=== PATIENT | male | born 1990 | race Caucasian/White ===

== ENCOUNTER 2018-11-20 14:50 | Emergency (ER) | payer OTHER, SELFPAY ==
[2018-11-20 14:51] VITALS: BP 119/75; PULSE 97; RESP 18; TEMP 36.4; O2SAT 98; BMI 24.7
--- NOTE | 2018-11-20 16:20 | ED.DCSUM_ITS ---
History of Present Illness Informant: Patient, Family Narrative: 28-year-old male with no past medical history concern for tick in the left ear. Family present state they saw a black speck in his ear and he was having pain. They stated they did see what appeared to be a tick earlier today on the outer portion of the ear. Denies any fever, chills, numbness or tingling. <Cam Taylor - Last Filed: 11/20/18 16:20> <Ernie Barahona - Last Filed: 11/20/18 23:31> Chief Complaint: Foreign Body Past Medical History Prior records reviewed: Yes Past Medical History: None Smoking Status: Light Smoker (<10/day) <Cam Taylor - Last Filed: 11/20/18 16:20> <Ernie Barahona - Last Filed: 11/20/18 23:31> - Allergies and Home Meds Allergies/Adverse Reactions: Allergies No Known Allergies Allergy (Verified 11/20/18 14:53) Primary Care Physician: [facility] Doctor,Out of [Primary Care Provider] - Review of Systems General: Denies: Chills, Fever, Sweats Eyes: Denies: Visual changes - bilaterally, Diplopia ENT: Denies: Rhinorrhea, Sore throat Cardiovascular: Denies: Chest pain, Palpitations Respiratory: Denies: Dyspnea, Cough, Dyspnea on exertion Gastrointestinal: Denies: Abdominal pain, Nausea, Vomiting, Diarrhea, Melena, Hematochezia Genitourinary: Denies: Dysuria, Hematuria, Frequency Musculoskeletal: Denies: Back pain, Extremity Pain Skin: Denies: Rash, Wounds Neurological: Denies: Headache, Weakness, Numbness <Cam Taylor - Last Filed: 11/20/18 16:20> Physical Exam Vital Signs/Narrative: Vital Signs Temp Pulse Resp BP Pulse Ox 11/20/18 14:51 97.6 F L 97 18 119/75 98 General: Well nourished, Well developed, No Acute Distress Head: Normocephalic, Atraumatic Eyes: Perrl, EOMI ENT: Moist mucous membranes, No rhinorrhea, - - Small area of scabbing in the inner external pinna. No evidence of tick or other foriegn body at this time. Neck: Supple, Nontender Cardiovascular: Regular rate, Regular rhythm, No murmurs Respiratory: No distress, CTA bilaterally, Chest nontender Abdomen: Soft, Nontender, Nondistended, Normal bowel sounds Back: Nontender, Normal Inspection Extremities: Nontender, No edema Skin: Normal color, No rash Neurological: Alert, Oriented x3, Cranial nerves II-XII grossly intact, Normal Strength, Normal Sensation Psychological: Normal affect, Normal Mood <Cam Taylor - Last Filed: 11/20/18 16:20> Diagnostic/Tx/Re-eval - Medical Decision Making Appears well and nontoxic. Vital signs within normal limits. I cannot identify an insect or a foreign body in this gentlemen's ear. There was a very small amount of lidocaine instilled at the site. It was explored thoroughly. Only a scab was able to be found. After discussion with the family was decided that they will keep it clean and dry washing with soap and water. No prophylactic antibiotics at this time. Follow-up with primary care provider upon return to [place]. Patient and family agreeable and discharged home in stable condition. Home stable. Impression 1. Ear wound <Cam Taylor - Last Filed: 11/20/18 16:20> - Medical Decision Making Saw the patient independently and in conjunction with the resident. Patient concern for a take in his left ear. There is a black pinpoint lesion in his left ear helix. Resident anesthetized and explored the wound. Scab was removed. No insect or tick visualized. Patient will be discharged to follow-up as an outpatient. <Ernie Barahona - Last Filed: 11/20/18 23:31> ED Disposition <Cam Taylor - Last Filed: 11/20/18 16:20> <Ernie Barahona - Last Filed: 11/20/18 23:31> - Plan for ED Patient: Disposition: Home or Assisted Living Diagnosis: Ear wound Instructions: Foreign Object in the Ear or Nose Referrals: [facility] Doctor,Out of [Primary Care Provider] -
== END 2018-11-20 16:32 | disposition home or self-care (01) ==
PROVIDERS: Emergency Provider Emergency Medicine
DX: S01.302A Unspecified open wound of left ear, initial encounter (principal); R23.4 Changes in skin texture; X58.XXXA Exposure to other specified factors, initial encounter; Y93.89 Activity, other specified; Y92.89 Other specified places as the place of occurrence of the external cause; Y99.8 Other external cause status
CPT/HCPCS: 99281

== ENCOUNTER → 2019-07-17 07:24 | Outpatient (CLI) | payer SELFPAY ==
--- NOTE | 2019-07-17 07:44 | MRI_ITS ---
STUDY: MRI LUMBAR SPINE WITHOUT CONTRAST REASON FOR EXAM: Male, 28 years old. radiculopathy,leg pain TECHNIQUE: Standardized fat and water weighted pulse sequences were obtained in the sagittal and axial planes. COMPARISON: None FINDINGS: T12-L1: Normal endplates. Normal disc height, hydration and morphology. Normal bilateral facet joints. Normal central canal and bilateral lateral recesses. Normal bilateral intervertebral neural foramina. Normal lumbar lordosis. There is no substantial scoliosis. Normal conus medullaris that terminates at the L1. L1-2: Normal endplates. Normal disc height, hydration and morphology. Normal bilateral facet joints. Normal central canal and bilateral lateral recesses. Normal bilateral intervertebral neural foramina. L2-3: Normal endplates. Normal disc height, hydration and morphology. Normal bilateral facet joints. Normal central canal and bilateral lateral recesses. Normal bilateral intervertebral neural foramina. L3-4: Normal endplates. Normal disc height, hydration and morphology. Normal bilateral facet joints. Normal central canal and bilateral lateral recesses. Normal bilateral intervertebral neural foramina. L4-5: Normal endplates. Normal disc height, hydration and morphology. Normal bilateral facet joints. Normal central canal and bilateral lateral recesses. Normal bilateral intervertebral neural foramina. L5-S1: Normal endplates. Normal disc height, hydration and morphology. Normal bilateral facet joints. Normal central canal and bilateral lateral recesses. Normal bilateral intervertebral neural foramina. Normal visualized sacral ala. Normal visualized paraspinous soft tissue structures. MRI/Spine Lumbar (Routine) IMPRESSION: Normal unenhanced MR examination of the lumbar spine. Electronically Signed: Dominik Quigley MD at 15:31 EDT Tel , Service support ,
== END ==
PROVIDERS: Visit Provider Physician Assistant
DX: M54.16 Radiculopathy, lumbar region (principal)
CPT/HCPCS: 72148

== ENCOUNTER 2020-05-19 11:44 | Emergency (ER) | payer OTHER, SELFPAY ==
[2020-05-19 11:45] VITALS: BP 127/93; PULSE 118; RESP 20; TEMP 36.1; O2SAT 97; BMI 29.0
--- NOTE | 2020-05-19 11:59 | ED.VIS.GEN ---
History of Present Illness Chief Complaint: Upper Extremity Injury Narrative: Patient presenting for evaluation secondary to a wrist injury. Per patient reports he suffered a fall from around 16 feet on Wednesday of this week. Patient tells me that he has been going to work all week, but has been wrapping his right wrist with an Stevo bandage. States that he is having continued severe pain. Patient denies to me that he hit his head or loss consciousness, or that he has any other injuries although the patient seems somewhat sedate currently and is difficult to obtain a full and accurate history. He denies to me any substance abuse or alcohol use Past Medical History - Allergies and Home Meds Allergies/Adverse Reactions: Allergies No Known Allergies Allergy (Verified 05/19/20 11:47) Primary Care Physician: Care Physician,No Primary [Primary Care Provider] - Prior records reviewed: Yes Past Medical History: None Smoking Status: Light Smoker (<10/day) Drugs: None Review of Systems ROS: Unable to Obtain - Patient is intermittently falling asleep Physical Exam Vital Signs/Narrative: Vital Signs Temp Pulse Resp BP Pulse Ox 05/19/20 11:45 97 F L 118 H 20 H 127/93 H 97 Inital Vital Signs reviewed: Yes General: Well nourished, Well developed, - - Intermittently responsive to questions and follows commands but is also falling asleep during the history and physical Head: Normocephalic, Atraumatic Eyes: Perrl, EOMI ENT: - - No step-offs of the neck, patient complains of midline tenderness in the lower C-spine. Neck: Supple Cardiovascular: Regular rate, Tachycardia, - - 2+ radial pulses bilaterally symmetric Respiratory: No distress, CTA bilaterally, Chest nontender Abdomen: Soft, Nontender, Nondistended, Normal bowel sounds Back: Nontender, Normal Inspection Extremities: - - Swelling and tenderness to palpation of the right wrist. Hand, proximal forearm, elbow, and upper arm appear atraumatic. No other traumatic injuries of the upper and lower extremities. Skin: Normal color, No rash Neurological: Alert, Normal Strength, Normal Sensation, - - Intermittently falling asleep, but arousable to noxious stimuli moving the upper and lower extremities. Diagnostic/Tx/Re-eval - Medical Decision Making Patient presented secondary to a wrist injury. On exam the patient seems to be intoxicated. I did initially order an alcohol level as well as CT imaging of the brain and cervical spine on this patient. Patient declined any additional testing other than his wrist x-ray. 3 view of the right wrist by my personal interpretation shows no signs of acute fracture. Sat down and had a prolonged conversation with the patient. He does report history of substance abuse as well as alcoholism. He is alert and oriented x3. He states that he wishes to leave. Patient also communicates to me that he is having some emotional issues that due to the fact that he is Ev[place] if he addresses these he will be condemned. I do feel that he suicidal homicidal or risk to others currently. Patient was discharged with supportive care. I did provide phone numbers for both the counseling center as well as orthopedics. ED Disposition - Plan for ED Patient: Disposition: Home or Assisted Living Diagnosis: Right wrist sprain Instructions: ED Wrist Sprain Referrals: Counseling,Center [GROUP OF PHYSICIANS] -
--- NOTE | 2020-05-19 12:32 | ED.RN ---
pt requests to leave. offered to call the friend that brought pt up and have him come sit with pt. pt refuses. dr us back to room, pt stands to leave. then states he will stay for x-ray
--- NOTE | 2020-05-19 12:38 | RAD_ITS ---
STUDY: X-RAY - RIGHT WRIST REASON FOR EXAM: Male, 29 years old. PT FELL 16 FOOT ON WEDNESDAY. PAIN TO RIGHT WRIST. TECHNIQUE: For view(s) of the wrist were obtained. COMPARISON: None. FINDINGS: Normal visualized distal radius and ulna. Normal radiocarpal articulation. Normal distal radioulnar articulation. Normal carpal bones. Normal carpal articulations. Normal carpometacarpal articulation of the thumb. Normal second through fifth carpometacarpal articulations. Normal visualized metacarpal bones. The soft tissue structures are unremarkable. RAD/Wrist min 3 Views IMPRESSION: Normal x-ray examination of the wrist. Electronically Signed: Dominik Quigley MD at 13:27 EST Tel , Service support ,
--- NOTE | 2020-05-19 12:49 | ED.RN ---
pt given dc instructions for wrist sprain. told to follow-up with dr tai. this rn attempted to give pt number for [facility]. pt does not want written info but did allow this rn to discretely write number on one piece of dc paper. pt encourage to return at anytime
[2020-05-19 12:51] LABS: Bedside Glucose 88 mg/dL (70-110)
== END 2020-05-19 12:55 | disposition home or self-care (01) ==
LOC: ED 12:53
PROVIDERS: Emergency Provider Emergency Medicine
DX: S63.501A Unspecified sprain of right wrist, initial encounter (principal); F17.200 Nicotine dependence, unspecified, uncomplicated; W19.XXXA Unspecified fall, initial encounter
CPT/HCPCS: 73110; 82962; 99282

== ENCOUNTER 2021-03-30 04:24 | Emergency (ER) | payer OTHER, SELFPAY ==
[2021-03-30 04:26] VITALS: BP 135/97; PULSE 105; RESP 18; TEMP 37; O2SAT 93; BMI 25.8
--- NOTE | 2021-03-30 04:36 | CT_ITS ---
STUDY: CT CHEST WITHOUT CONTRAST REASON FOR EXAM: Male, 30 years old. left upper back/scapula injury -- 500# wall fell on back RADIATION DOSAGE (If Supplied By Facility): CTDIvol = ( 13.08 ) mGy, DLP = ( 503.00 ) mGycm TECHNIQUE: Transaxial 2.5 mm imaging was performed without the administration of intravenous contrast material. Multiplanar coronal and sagittal images were reformatted. This examination is limited for the evaluation of gastrointestinal, solid organs and vascular structures due to the lack of intravenous and oral contrast. Individualized dose optimization techniques were used for this CT. COMPARISON: None. FINDINGS: There is no demonstrated pneumothorax, contusion or effusion. Calcified nodule in the bilateral upper lobe, left lower and right middle lobe . Minimal airspace disease less than 1 cm in the anterior left upper lobe. Probable minimal scarring in the bases. There is no demonstrated pleural abnormality. Normal heart and pericardium. Calcified mediastinal and left hilar lymph nodes. Normal hilar regions. Normal unenhanced pulmonary arteries. Normal aorta arch and descending thoracic aorta. Degenerative changes of the right acromioclavicular joint. The bilateral clavicles, scapula, hemithoraces and sternum appear intact. There is a pectus excavatum deformity. There is no demonstrated abnormality of the visualized upper abdomen. CT/Chest without Contrast IMPRESSION: No acute vascular, parenchymal, visceral or osseous injury on noncontrast imaging. Suspect granulomatous exposure. Electronically Signed: Linh Guido MD at 5:47 EST , Service support ,
[2021-03-30] MEDS: oxyCODONE 5 MG Tablet PO (05:06)
--- NOTE | 2021-03-30 05:09 | EX.ED.UPPERE ---
HPI History of Present Illness Chief Complaint: Upper Extremity Injury Informant: patient Narrative Narrative: Patient presents for work-related injury occurring a week ago. Injury occurred on construction site. 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 He has been dealing with the pain for the past week. There is no head injuries. States it knocked him down. Denies new injuries. States he was not evaluated at any facilities for this injury. No past medical history. No allergies. Pain with movement. PFSH PFSH Medical History no medical history Home Medications ibuprofen 600 mg PO 4X/DAY PRN #20 tab 03/30/21 [Rx Last Taken Unknown] Allergy/AdvReac Type Severity Reaction Status Date / Time No Known Allergies Allergy Verified 03/30/21 04:29 Family History no significant family his Surgical History no surgical history Social History Smoking Status: Never smoker ROS ROS ED Constitutional Constitutional ED: Denies chills, fever(s) or sweats Eyes Eyes: Denies change in vision ENT ENT ED: Denies dysphagia or sore throat Cardiovascular Cardiovascular: Denies chest pain, leg edema, palpitations or racing heartbeat Respiratory/Chest Respiratory/Chest: Denies cough, dyspnea or dyspnea on exertion Gastrointestinal Gastrointestinal: Denies abdominal pain, diarrhea, nausea or vomiting Genitourinary Genitourinary ED: Denies dysuria, hematuria or urinary frequency Musculoskeletal Musculoskeletal: Reports back pain; Denies extremity pain or neck pain Integumentary Denies rash or wounds Neurologic Neurologic: Denies headache(s), paresthesias or weakness EXAM Physical Exam Const Vital Signs: 03/30/21 04:26 Temperature 98.6 F Temperature Source Oral Pulse Rate 105 H Respiratory Rate 18 Blood Pressure 135/97 H Blood Pressure Mean 109 Pulse Ox 93 Oxygen Delivery Method Room Air Positive well nourished and well developed General Appearance ED: well developed and NAD HEENT Reports moist mucous membranes normocephalic and atraumatic Eyes PERRL, EOMs intact bilaterally and conjunctivae normal General Eye ED: Yes normal appearance of both eyes Neck no lymphadenopathy and supple General: Negative for tenderness Chest Wall Chest: Negative for tenderness Resp normal respiratory effort and normal air movement Effort and Inspection: symmetric chest movement; Negative for respiratory distress Cardio regular rate, regular rhythm and no murmurs Peripheral Pulses: pulses 2+ throughout GI normal to inspection, nondistended, normoactive bowel sounds and non-tender Palpation: Negative for guarding or rebound tenderness present Back/Spine no CVA tenderness and no thoracic nor lumbar tenderness Back/Spine Narrative: Tender palpation below left trapezius no crepitus. Also tender mild tenderness at the scapula. No ecchymosis of the skin. Skin intact. Extremity normal to inspection Extremity Narrative: No tenderness of the proximal shoulder without any deformities. No clavicle tenderness on the left side. Skin intact. Neurovascular intact distally. General Extremety ED: Negative for edema or tenderness General Extremity: Negative for edema Neuro oriented x3 and no sensory deficits noted Sensorium / Orientation: awake and alert Skin no rashes or lesions noted and no wounds MDM MDM MDM Narrative Medical decision making narrative: Symmetric breath sounds, with mechanism of injury 500 pound wall falling onto his back. Noncontrast CT scan obtained of the chest results negative for any fractures. Nonspecific calcified nodules noted per radiology. Initially declined pain medications, however later excepted for which an oxycodone was given. After CT scan, range of motion of the extremities performed with full range of motion no deformities. Patient is reassured. He is given appropriate work restrictions and follow-up with corporate care. He is given NSAIDs to use for inflammatory treatment. All questions were answered. Patient is being discharged under pandemic conditions under declared global, national and state disaster activation, with limited medical resources. Patient and community understands this. Results discussed in layman's terms to the patient satisfaction. All questions answered in layman's terms. Patient understands importance of follow-up care as directed. Patient has been instructed to return to the ED immediately if new symptoms, problems, or questions occur. We mutually agree with the plan of disposition. The patient understand that they may call or return with any questions or concerns at any time. Discharge Plan Triage Chief Complaint: Upper Extremity Injury ED Provider: Woodrow Gannon Dx/Rx/DC Orders Clinical Impression: Contusion of back, Back pain Instructions: ED Back Contusion Prescriptions: New ibuprofen 600 MG tablet 600 mg PO 4X/DAY PRN (Reason: Pain Or Fever) Qty: 20 RF: 0 Primary Care Provider: Care Physician,No Primary Referrals: Corporate,Care [GROUP OF PHYSICIANS] - 2 Days Care Physician,No Primary [Primary Care Provider] - Disposition Disposition: Home, Self Care Discharge Date/Time: 03/30/21 06:25
[2021-03-30 06:23] VITALS: BP 130/74; PULSE 64; RESP 17
== END 2021-03-30 06:25 | disposition home or self-care (01) ==
PROVIDERS: Emergency Provider Emergency Medicine
DX: S20.229A Contusion of unspecified back wall of thorax, initial encounter (principal); W22.8XXA Striking against or struck by other objects, initial encounter; Y92.69 Other specified industrial and construction area as the place of occurrence of the external cause
CPT/HCPCS: 71250; 99282